=== PATIENT | male | born 1985 | race Caucasian/White ===

== ENCOUNTER 2017-11-25 09:53 | Emergency (ER) | payer BC ==
--- NOTE | 2017-11-25 10:29 | EDM.PDOC ---
<Ashlyn Tsang - Last Filed: 11/25/17 13:14> ED HPI GENERAL MEDICAL PROBLEM - General Chief Complaint: Back Pain or Injury Stated Complaint: BACK PAIN Time Seen by Provider: 11/25/17 10:32 Source of Information: Reports: Patient History Limitations: Reports: No Limitations - History of Present Illness INITIAL COMMENTS - FREE TEXT/NARRATIVE: HISTORY AND PHYSICAL: []32-year-old male presenting with low back pain just above his tailbone History of Present Illness: []6 days ago patient was playing with his children bent over and could not straighten up He had walked into the emergency room with some difficulty Review of Systems: As per history of present illness and below otherwise all systems reviewed and negative. Past medical history: As per history of present illness and as reviewed below otherwise noncontributory. Surgical history: As per history of present illness and as reviewed below otherwise noncontributory. Social history: No reported history of drug or alcohol abuse. Family history: As per history of present illness and as reviewed below otherwise noncontributory. Physical exam: Alert and oriented male answering questions appropriately. He is not short of breath with speaking. nontoxic in appearance HEENT: Atraumatic, normocehpalic, pupils reactive, negative for conjunctival pallor or scleral icterus, mucous membranes moist, throat clear, neck supple, nontender, trachea midline. Lungs: Clear to auscultation, breath sounds equal bilaterally, chest non tender. Heart: S1S2, regular, negative for clicks, rubs, or JVD. Abdomen: Soft, nondistended, nontender. Negative for masses or hepatossplenmegaly. Negative for costovertebral tenderness. Back: No step-offs or vertebral tenderness or noted most is to the vertebral area from lower lumbar L2 to the sacral area. Twisting movement is difficult for this patient turn over. Pelvis: Stable nontender. Genitourinary: Deferred. Rectal: Deferred Extremities: Atraumatic, negative for cords or calf pain. full ROM no Deficits Neurovascular unremarkable. Neuro: Awake, alert, oriented. Cranial nerves II through XII unremarkable. Cerebellum unremarkable. Motor and sensory unremarkable throughout. Exam nonfocal. Patient only has slight improvement of his back pain. Patient had another 2 or pain and developed hives at his IV site, and adrenal 50 mg IV was given along with Zyrtec 10 by mouth Patient has disc annular bulge slightly at L2-3 annular bulge at 34 and L4-5 Diagnostics: []CT LS-spine Therapeutics: []Morphine Zofran Impression: []Back pain Plan: []Home Flexeril Prednisone Zyrtec Daily for 2 weeks Definitive disposition and diagnosis as appropriate pending reevaluation and review of above. Onset: Sudden Duration: Day(s): (6), Getting Worse Location: Reports: Back Quality: Reports: Stabbing, Throbbing Severity: Severe Improves with: Reports: None Worsens with: Reports: None low back Pain Score (Numeric/FACES): 9 - Related Data Allergies Allergy/AdvReac Type Severity Reaction Status Date / Time No Known Allergies Allergy Verified 11/25/17 10:04 Home Meds: Home Meds Cyclobenzaprine [Flexeril] 10 mg PO TID #14 tab 11/25/17 [Rx] Past Medical History - Past Health History Medical/Surgical History: Denies Medical/Surgical History Social & Family History - Family History Family Medical History: Noncontributory - Tobacco Use Smoking Status *Q: Current Every Day Smoker Years of Tobacco use: 20 Packs/Tins Daily: 1 - Caffeine Use Caffeine Use: Reports: Energy Drinks - Recreational Drug Use Recreational Drug Use: No ED ROS GENERAL - Review of Systems Review Of Systems: ROS reveals no pertinent complaints other than HPI. ED EXAM,LOWER BACK PAIN/INJURY - Physical Exam Exam: See Below (see dictation) Course - Vital Signs Last Recorded V/S: Last Vital Signs Temp 36.3 C 11/25/17 10:01 Pulse 87 11/25/17 13:40 Resp 18 11/25/17 13:40 BP 130/84 11/25/17 13:40 Pulse Ox 99 11/25/17 13:40 - Orders/Labs/Meds Orders: Active Orders 24 hr Category Date Time Status Lumbar Spine wo Cont [CT] Stat Exams 11/25/17 10:35 Taken Saline Lock Insert [OM.PC] Stat Oth 11/25/17 10:34 Ordered Labs: Laboratory Tests 11/25/17 Range/Units 10:48 WBC 9.99 (4.0-11.0) K/uL RBC 5.33 (4.50-5.90) M/uL Hgb 16.6 (13.0-17.0) g/dL Hct 47.5 (38.0-50.0) % MCV 89.1 (80.0-98.0) fL MCH 31.1 (27.0-32.0) pg MCHC 34.9 (31.0-37.0) g/dL RDW Std Deviation 42.0 (28.0-62.0) fl RDW Coeff of Marium 13 (11.0-15.0) % Plt Count 304 (150-400) K/uL MPV 10.20 (7.40-12.00) fL Neut % (Auto) 59.4 (48.0-80.0) % Lymph % (Auto) 28.9 (16.0-40.0) % [place] % (Auto) 6.4 (0.0-15.0) % Eos % (Auto) 4.8 (0.0-7.0) % Baso % (Auto) 0.5 (0.0-1.5) % Neut # (Auto) 5.9 H (1.4-5.7) K/uL Lymph # (Auto) 2.9 H (0.6-2.4) K/uL [place] # (Auto) 0.6 (0.0-0.8) K/uL Eos # (Auto) 0.5 (0.0-0.7) K/uL Baso # (Auto) 0.1 (0.0-0.1) K/uL Nucleated RBC % 0.0 /100WBC Nucleated RBCs # 0 K/uL Meds: Medications Discontinued Medications Generic Name Dose Route Start Last Admin Trade Name Freq PRN Reason Stop Dose Admin Cetirizine HCl 10 mg 11/25/17 12:57 11/25/17 13:05 Zyrtec PO 11/25/17 12:58 10 mg ONETIME ONE Administration Cyclobenzaprine HCl 10 mg 11/25/17 12:18 11/25/17 12:38 Flexeril PO 11/25/17 12:19 10 mg ONETIME ONE Administration Diphenhydramine HCl 50 mg 11/25/17 12:57 11/25/17 13:05 Benadryl IVPUSH 11/25/17 12:58 50 mg ONETIME ONE Administration Morphine Sulfate 4 mg 11/25/17 10:34 11/25/17 10:49 Morphine IVPUSH 11/25/17 10:35 4 mg ONETIME ONE Administration Morphine Sulfate 2 mg 11/25/17 12:18 11/25/17 12:38 Morphine IVPUSH 11/25/17 12:19 2 mg ONETIME ONE Administration Ondansetron HCl 4 mg 11/25/17 10:34 11/25/17 10:49 Zofran IVPUSH 11/25/17 10:35 4 mg ONETIME ONE Administration Sodium Chloride 10 ml 11/25/17 10:34 11/25/17 10:49 Saline Flush FLUSH 10 ml ASDIRECTED PRN Administration Keep Vein Open Sodium Chloride 2.5 ml 11/25/17 10:34 11/25/17 10:49 Saline Flush FLUSH 2.5 ml ASDIRECTED PRN Administration Keep Vein Open Departure - Departure Time of Disposition: 12:59 Disposition: Home, Self-Care 01 Condition: Good Clinical Impression: Low back pain Qualifiers: Chronicity: acute Back pain laterality: right Sciatica presence: unspecified whether sciatica present Qualified Code(s): M54.5 - Low back pain - Discharge Information Prescriptions: Cyclobenzaprine [Flexeril] 10 mg PO TID #14 tab Instructions: Muscle Strain, [id number], Back Pain, Adult, [id number] Referrals: PCP,None [Primary Care Provider] - Forms: ED Department Discharge Additional Instructions: The following information is given to patients seen in the emergency department who are being discharged to home. This information is to outline your options for follow-up care. We provide all patients seen in our emergency department with a follow-up referral. The need for follow-up, as well as the timing and circumstances, are variable depending upon the specifics of your emergency department visit. If you don't have a primary care physician on staff, we will provide you with a referral. We always advise you to contact your personal physician following an emergency department visit to inform them of the circumstance of the visit and for follow-up with them and/or the need for any referrals to a consulting specialist. The emergency department will also refer you to a specialist when appropriate. This referral assures that you have the opportunity for followup care with a specialist. All of these measure are taken in an effort to provide you with optimal care, which includes your followup. Under all circumstances we always encourage you to contact your private physician who remains a resource for coordinating your care. When calling for followup care, please make the office aware that this follow-up is from your recent emergency room visit. If for any reason you are refused follow-up, please contact the [facility] emergency department at and asked to speak to the emergency department charge nurse. Follow-up with your primary care by Thursday Emergency room will not refill any pain medications He may need physical therapy for resolution of this Return to the emergency room as discussed and directed <Roseanne Gomez - Last Filed: 11/25/17 14:33> ED HPI GENERAL MEDICAL PROBLEM - History of Present Illness INITIAL COMMENTS - FREE TEXT/NARRATIVE: Please add to Impression: bulging discs, disc disease
[2017-11-25] MEDS: Sodium Chloride 0.9% 2.5 ML Syringe FLUSH PRN (10:49)
[2017-11-25] MEDS: Sodium Chloride 0.9% 10 ML Syringe FLUSH PRN (10:49)
[2017-11-25] MEDS: Morphine 4 MG/ML Syringe IVPUSH ONE (10:49)
[2017-11-25] MEDS: Ondansetron 4 MG/2 ML SDV IVPUSH ONE (10:49)
[2017-11-25] MEDS: Cyclobenzaprine 10 MG Tab PO ONE (12:38)
[2017-11-25] MEDS: Morphine 2 MG/ML Syringe IVPUSH ONE (12:38)
[2017-11-25] MEDS: diphenhydrAMINE 50 MG/ML SDV IVPUSH ONE (13:05)
[2017-11-25] MEDS: Cetirizine 10 MG Tab PO ONE (13:05)
[2017-11-25] MEDS ORDERED: Ketorolac 30 MG/ML SDV IVPUSH ONE (13:08)
--- NOTE | 2017-11-26 09:28 | CT ---
EXAM DATE: 11/25/17 PATIENT'S AGE: 32 Patient: SANCHEZ BEACH Facility: [place], [place] Site . Site : 1985 Study: CT Spine Lumbar W/Cont [id number]/30/2018 12:12:37 PM Ordering Physician: Doctor Jones Final Report: INDICATION: Difficulty straightening back. Comparison none. TECHNIQUE: CT of the lumbar spine with IV contrast. Coronal sagittal reformat images. FINDINGS: Minimal lumbar curve convex to the right. Otherwise, normal vertebral body alignment. There is a unilateral right pars defect of L5 (sagittal image 81). However, no evidence of significant spondylolisthesis of L5 relative to S1. No acute fractures. No vertebral body loss of height. No spondylolisthesis. T12-L1: No spinal canal or neural foraminal narrowing. L1-2: No spinal canal or neural foraminal narrowing. L2-3: Mild annular bulge. No spinal canal or neural foraminal narrowing. L3-4: Annular bulge. No narrowing of spinal canal. No neural foraminal narrowing. L4-5: Annular bulge. No narrowing of spinal canal. Facet arthropathy contributes to mild narrowing of the left neural foramen. No narrowing of the right neural foramen. Mild bilateral facet arthropathy. L5-S1: No spinal canal narrowing. No impingement of the traversing S1 nerve roots. No neural foraminal narrowing. Normal visualized SI joints bilaterally. No presacral edema inflammation. No fractures of the sacrum. Normal visualized SI joints. Normal paraspinal soft tissues. IMPRESSION: 1. Normal alignment. No acute fractures. No vertebral body loss of height. 2. Unilateral right pars defect of L5. Otherwise, no spondylolisthesis 3. At L4-5, annular bulge. No spinal canal narrowing. Mild narrowing of the left neural foramina 4. No spinal canal or neural foraminal narrowing at the remaining levels Please note that all CT scans at this facility use dose modulation, iterative reconstruction, and/or weight-based dosing when appropriate to reduce radiation dose to as low as reasonably achievable. Dictated by Benjy Cole MD @ Nov 25 2017 12:49PM (Electronic Signature) Report Signed by Proxy. [facility]
== END 2017-11-25 13:40 | disposition home or self-care (01) ==
LOC: MW.ED 09:53
DX: M51.9 Unspecified thoracic, thoracolumbar and lumbosacral intervertebral disc disorder (principal); F17.210 Nicotine dependence, cigarettes, uncomplicated
CPT/HCPCS: 36415; 72131; 85025; 96374; 96375; 96376; 99284; A9270; J1200; J2270; J2405; 99282